=== PATIENT | male | born 1975 | race Caucasian/White ===

== ENCOUNTER 2016-12-31 13:27 | Emergency (ER) | payer OTHER ==
[~2016-12-31] VITALS: Ht 185.4 cm; Wt 80.3 kg
[2016-12-31 13:34] VITALS: BP 141/97
--- NOTE | 2016-12-31 16:03 | ED.ADGEN ---
Past History Past Medical History: No Pertinent History Past Surgical History: Other Alcohol Use: Occasionally Drug Use: None Adult General Chief Complaint Chief Complaint Forehead laceration HPI HPI Patient is a 41-year-old [employer] who presents with laceration to right central forehead. Patient was hit in the forehead with a door. He denies loss of consciousness or falling. Reports briefly feeling stunned. Mild headache, soft tissue pain only. Patient with 3 cm linear vertical laceration just above medial aspect of eyebrow. Injury occurred just prior to ED arrival. Tetanus status is up-to-date. Review of Systems Review of Systems Review symptoms as per history of present illness. All other review symptoms are negative. Allergies Allergies Allergies Coded Allergies Type Severity Reaction Last Updated Verified No Known Drug Allergies 12/31/16 No Physical Exam Physical Exam Constitutional: Well developed, well nourished, no acute distress, non-toxic appearance. [] HENT: Normocephalic, 3 cm, linear full-thickness vertical laceration right medial forehead, bilateral external ears normal, oropharynx moist, no oral exudates, nose normal. [] Eyes: PERRLA, EOMI, conjunctiva normal, no discharge. [] Neck: Normal range of motion Neurologic: Motor function, normal sensory function, no focal deficits noted. [] Psychologic: Affect normal, judgement normal, mood normal. [] Current Patient Data Vital Signs Vital Signs Date Time Temp Pulse Resp B/P (MAP) Pulse Ox O2 Delivery O2 Flow Rate FiO2 12/31/16 13:34 98.1 60 12 98 Room Air EKG EKG [] Radiology/Procedures Radiology/Procedures [Laceration repair procedure note: Right for laceration, clean, bleeding controlled. No foreign bodies. Laceration was cleared with normal saline injected with 2 ml 1% lidocaine without epinephrine. #6, 6 Prolene simple sutures were placed to close for a laceration. Typical wound care instructions given.] Course & Med Decision Making Course & Med Decision Making Pertinent Labs and Imaging studies reviewed. (See chart for details) [Soft tissue head injury. Wound cleansed and closed. Typical wound care instructions given. Final Impression Final Impression [1. Forehead laceration] Problems: Dragon Disclaimer Dragon Disclaimer This electronic medical record was generated, in whole or in part, using a voice recognition dictation system. EL SEGUNDO DO Dec 31, 2016 16:03
== END 2016-12-31 14:20 | disposition home or self-care (01) ==
LOC: ER 13:27
DX: S01.81XA Laceration without foreign body of other part of head, initial encounter (principal); W22.8XXA Striking against or struck by other objects, initial encounter; Y93.89 Activity, other specified; Y99.8 Other external cause status; Y92.89 Other specified places as the place of occurrence of the external cause
CPT/HCPCS: 12013; 99283-25